=== PATIENT | male | born 2000 | race Caucasian/White ===

== ENCOUNTER 2019-01-02 22:00 | Emergency (ER) | payer BC ==
[~2019-01-02] VITALS: Ht 175.3 cm; Wt 74.5 kg
[2019-01-02] MEDS ORDERED: TOUJEO300 U/ML SQ (22:26)
[2019-01-02] MEDS ORDERED: NOVOLOGMIX70/30 SQ (22:27)
[2019-01-02 23:39] VITALS: BP 122/88; PULSE 87; TEMP 98.2
== END 2019-01-02 23:40 | disposition home or self-care (01) ==
LOC: COL.ER 22:00
DX: S09.90XA Unspecified injury of head, initial encounter (principal); S01.511A Laceration without foreign body of lip, initial encounter; E11.9 Type 2 diabetes mellitus without complications; Z79.4 Long term (current) use of insulin; Z88.0 Allergy status to penicillin; W50.0XXA Accidental hit or strike by another person, initial encounter; Y92.322 Soccer field as the place of occurrence of the external cause; Y93.66 Activity, soccer

== ENCOUNTER 2021-11-05 12:27 | Emergency (ER) | payer BC, OTHER ==
[~2021-11-05] VITALS: Ht 175.3 cm; Wt 84.1 kg
[~2021-11-05 12:27] MED LIST: NOVOLOGMIX70/30 SQ; TOUJEO300 U/ML SQ
[2021-11-05 12:39] VITALS: BP 157/94; TEMP 98.3
[2021-11-05] MEDS ORDERED: CEPHALEXIN500 M1 PO (13:39)
[2021-11-05 14:07] VITALS: PULSE 104
== END 2021-11-05 14:07 | disposition home or self-care (01) ==
LOC: COL.ER 12:27
DX: L05.01 Pilonidal cyst with abscess (principal); Z88.0 Allergy status to penicillin